=== PATIENT | female | born 2000 | race Caucasian/White ===

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

== ENCOUNTER 2022-06-14 13:57 | Outpatient (RCR) | payer BC, MEDICAID, SELFPAY | END 2022-06-18 23:59 | disposition home or self-care (01) | LOC: SPT 13:57 | PROVIDERS: Visit Provider Internal Medicine Gastroenterology | DX: R10.9 Unspecified abdominal pain (principal); R19.4 Change in bowel habit | CPT/HCPCS: 97161 ==

== ENCOUNTER 2022-06-19 06:00 | Outpatient (RCR) | payer BC, MEDICAID, SELFPAY | END 2022-07-19 23:59 | disposition home or self-care (01) | LOC: SPT 06:00 | PROVIDERS: Visit Provider Internal Medicine Gastroenterology | DX: R27.8 Other lack of coordination (principal); R19.4 Change in bowel habit; R10.9 Unspecified abdominal pain | CPT/HCPCS: 97110; 97530 ==

== ENCOUNTER 2022-07-20 06:00 | Outpatient (RCR) | payer BC, MEDICAID, SELFPAY | END 2022-08-09 23:59 | disposition home or self-care (01) | LOC: SPT 06:00 | PROVIDERS: Visit Provider Internal Medicine Gastroenterology | DX: R27.8 Other lack of coordination (principal); R19.4 Change in bowel habit; R10.9 Unspecified abdominal pain | CPT/HCPCS: 97110 ==

== ENCOUNTER 2022-10-02 14:59 | Oncology outpatient (recurring) (ONCR) | payer SELFPAY | END 2022-10-19 23:59 | disposition home or self-care (01) | PROVIDERS: Visit Provider Internal Medicine Medical Oncology | DX: Z53.9 Procedure and treatment not carried out, unspecified reason (principal) ==